=== PATIENT | female | born 1970 | race Caucasian/White ===

== ENCOUNTER 2024-12-01 14:20 | Outpatient (AMB) | payer OTHER, SELFPAY ==
--- NOTE | 2024-12-01 14:24 | ORTHONT_ITS ---
Vital signs 12/01/24 14:32 Height 1.65 m Height Method Stated Weight 95.85 kg Weight Measurement Method Standing Scale BMI 35.2 BP 135/79 H Blood Pressure Source Automatic Cuff Blood Pressure Location Left Upper Arm Position Sitting Respiration 18 Pulse 71 Pulse Source Monitor Temp 97.8 F Temp Source Temporal Artery Scan Pulse Oximetry (%) 95 Oxygen Delivery Method Room Air Med/Allergies Allergies & Medications Allergies No Known Allergies Allergy (Verified 12/01/24 14:33) Medication Reconciliation amlodipine 10 mg tablet 10 mg PO QDAY 12/01/24 [History Confirmed 12/01/24] celecoxib 100 mg capsule 100 mg PO BID 12/01/24 [History Confirmed 12/01/24] gabapentin 100 mg capsule 100 mg PO QDAY 12/01/24 [History Confirmed 12/01/24] glipizide 10 mg tablet 10 mg PO QDAY 12/01/24 [History Confirmed 12/01/24] isoniazid 300 mg tablet 300 mg PO QDAY 12/01/24 [History Confirmed 12/01/24] levothyroxine 200 mcg capsule 200 mcg PO QDAY 12/01/24 [History Confirmed 12/01/24] loratadine 10 mg capsule (Allergy Relief (loratadine)) 10 mg PO QDAY 12/01/24 [History Confirmed 12/01/24] meloxicam 15 mg tablet 15 mg PO QDAY 12/01/24 [History Confirmed 12/01/24] montelukast 10 mg tablet 10 mg PO QDAY 12/01/24 [History Confirmed 12/01/24] nitrofurantoin 25 mg/5 mL oral suspension 50 mg PO QHS 12/01/24 [History Confirmed 12/01/24] repaglinide 2 mg tablet 2 mg PO TID 12/01/24 [History Confirmed 12/01/24] semaglutide 3 mg tablet (Rybelsus) 3 mg PO QDAY 12/01/24 [History Confirmed 12/01/24] Exam Exam Patient is in no acute distress and is cooperative with the examination today. Breathing is nonlabored. In no respiratory distress. Bilateral extremities were evaluated and demonstrates sensation intact to light touch. Palpable pedal pulses are present. No significant edema is present. Bilateral hips were examined. The patient has no pain with log roll of the hips. Internal rotation to 30 degrees and external rotation to 30 degrees is painless. Negative FADIR. The left knee was examined. The left knee is in varus alignment. Range of motion from 0-115 degrees. Knee is stable to varus and valgus as well as AP translation with <5mm. Patient has a negative McMurrays. There is no pain with patellofemoral compression and no crepitus noted. The knee is tender to palpation medially. The right knee was also examined. The right knee is in varus alignment. Range of motion from 0-120 degrees. Knee is stable to varus and valgus as well as AP translation with <5mm. Patient has a negative McMurrays. There is no pain with patellofemoral compression and no crepitus noted. The knee is tender to palpation medially. Assessment and Plan Problem List (1) Bilateral knee pain: Status: Acute Plan: Patient is a pleasant 53-year-old female with bilateral knee pain and bilateral knee arthritis. We discussed different treatment options. We recommend injections or anti-inflammatories. We will see her weightbearing x-rays and see her back after it is done. She had a prior arthroscopic meniscectomy and has persistent pain. 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 ([id number]) MA Intake Visit Data Collection New Patient or Established: New Patient (never been to [facility]) Reason for Visit:: LEFT KNEE PAIN Seen by Clinical Staff ONLY (RN/MA): No PCP or OBGYN visit in last 3 months: Yes Hx Now: No Do You Feel Safe at Home: Yes Authorities Contacted: N/A Questionairres Past Medical History Past Medical History Have you ever been diagnosed with any of the following: Cardiology Problems Hypercholesterolemia: Yes Hypertension: Yes Endocrine Problems Diabetes Mellitus Type 1: Yes Hyperthyroidism: Yes Subjective Visit Visit for: new patient and knee Immunization / Flu Flu Vaccine in the Last 12 Months: No Flu Vaccine Exclusion Criteria: Refused by Patient History of Present Illness Chief complaint: Bilateral knee pain Shavonne is a 73-year-old female chronic knee pain left greater than right. This has been ongoing for several years. She has not had any injections in her knees. She has been seen by a private equity associate. She reports the pain is affecting her quality life and happiness Pain Pain level (0-10): 6 Pain duration: ALL DAY Pain location: inside (medial), outside (lateral) and anterior Pain quality: sharp, dull and aching Pain timing: increases with activity and stairs Associated signs & symptoms: weakness Ambulatory data Ambulatory device: cane Treatments Number of previous injections: 0 Improvement with previous injections: No Number of Physical Therapy sessions: 0 Improvement with PT: No Improvement with NSAIDS: no Review of Systems Review of Systems: All systems negative unless otherwise noted in HPI.
[2024-12-01 14:32] VITALS: BP 135/79; PULSE 71; RESP 18; TEMP 36.6; O2SAT 95; BMI 35.2
--- NOTE | 2024-12-01 14:35 | XR_ITS ---
Examination: Bilateral knees 2 views Right lateral knee left lateral knee 2 views Bilateral axial knees single view TECHNIQUE: Bilateral AP knees standing single view Bilateral PA knees standing single view flexion Standing right lateral knee left lateral knee 2 views Bilateral axial knees single view total 5 views Date and time: December 01, 2024 1451 hours INDICATIONS: Bilateral knee pain beginning several years ago FINDINGS: Moderate osteopenia Moderate narrowing medial joint space right knee Advanced medial joint space left knee No fractures IMPRESSION: Advanced narrowing medial joint space left knee
== END 2024-12-01 14:38 | disposition home or self-care (01) ==
LOC: HODSRG 14:20
PROVIDERS: PCP Internal Medicine; Referring Provider Internal Medicine; Supervising Provider Orthopaedic Surgery Adult Reconstructive Orthopaedic Surgery; Visit Provider Orthopaedic Surgery Adult Reconstructive Orthopaedic Surgery
DX: M25.562 Pain in left knee (principal); M25.561 Pain in right knee; M17.0 Bilateral primary osteoarthritis of knee; I10 Essential (primary) hypertension; E78.00 Pure hypercholesterolemia, unspecified; E10.9 Type 1 diabetes mellitus without complications
CPT/HCPCS: 73564; 99204; G0463

== ENCOUNTER 2024-12-22 07:59 | Outpatient (AMB) | payer OTHER, SELFPAY ==
--- NOTE | 2024-12-22 08:08 | PD.ORTHCLVIS ---
Vital signs 12/22/24 08:09 Height 1.65 m Height Method Measured Weight 97.069 kg Weight Measurement Method Standing Scale BMI 35.6 BP 126/78 Blood Pressure Source Automatic Cuff Blood Pressure Location Right Upper Arm Position Sitting Respiration 18 Pulse 76 Pulse Source Monitor Temp 97.3 F Temp Source Temporal Artery Scan Pulse Oximetry (%) 98 Oxygen Delivery Method Room Air Med/Allergies Allergies & Medications Allergies No Known Allergies Allergy (Verified 12/22/24 08:09) Medication Reconciliation amlodipine 10 mg tablet 10 mg PO QDAY 12/01/24 [History Confirmed 12/22/24] celecoxib 100 mg capsule 100 mg PO BID 12/01/24 [History Confirmed 12/22/24] gabapentin 100 mg capsule 100 mg PO QDAY 12/01/24 [History Confirmed 12/22/24] glipizide 10 mg tablet 10 mg PO QDAY 12/01/24 [History Confirmed 12/22/24] isoniazid 300 mg tablet 300 mg PO QDAY 12/01/24 [History Confirmed 12/22/24] levothyroxine 200 mcg capsule 200 mcg PO QDAY 12/01/24 [History Confirmed 12/22/24] loratadine 10 mg capsule (Allergy Relief (loratadine)) 10 mg PO QDAY 12/01/24 [History Confirmed 12/22/24] meloxicam 15 mg tablet 15 mg PO QDAY 12/01/24 [History Confirmed 12/22/24] montelukast 10 mg tablet 10 mg PO QDAY 12/01/24 [History Confirmed 12/22/24] nitrofurantoin 25 mg/5 mL oral suspension 50 mg PO QHS 12/01/24 [History Confirmed 12/22/24] repaglinide 2 mg tablet 2 mg PO TID 12/01/24 [History Confirmed 12/22/24] semaglutide 3 mg tablet (Rybelsus) 3 mg PO QDAY 12/01/24 [History Confirmed 12/22/24] apixaban 5 mg tablet (Eliquis) 5 mg PO BID 12/22/24 [History Confirmed 12/22/24] Exam Exam Patient is in no acute distress and is cooperative with the examination today. Breathing is nonlabored. In no respiratory distress. Bilateral extremities were evaluated and demonstrates sensation intact to light touch. Palpable pedal pulses are present. No significant edema is present. Bilateral hips were examined. The patient has no pain with log roll of the hips. Internal rotation to 30 degrees and external rotation to 30 degrees is painless. Negative FADIR. The left knee was examined. The left knee is in varus alignment. Range of motion from 0-115 degrees. Knee is stable to varus and valgus as well as AP translation with <5mm. Patient has a negative McMurrays. There is no pain with patellofemoral compression and no crepitus noted. The knee is tender to palpation medially. The right knee was also examined. The right knee is in varus alignment. Range of motion from 0-120 degrees. Knee is stable to varus and valgus as well as AP translation with <5mm. Patient has a negative McMurrays. There is no pain with patellofemoral compression and no crepitus noted. The knee is tender to palpation medially. Bilateral knee xrays demonstrate significant joint space narrowing medially worse on the left Assessment and Plan Problem List (1) Bilateral knee pain: Status: Acute Plan: Patient is a pleasant 54-year-old female with severe left knee arthritis. We discussed nonoperative and operative options. She was recently diagnosed with a blood clot and can likely not get surgery for a while. We told her to ask her primary care provider when she can get surgery as she was only recently diagnosed with a blood clot a couple weeks ago. She does not want any injections today as the last 1 did not work Office Procedures GNS Level of Care Nursing/Assessment Patient Status: Established Patient Nursing Assessment/Reassesment: Medication Reconciliation, Update PMH in EMR and Vital Signs Coordination of Care: Complex Care and Chronic Disease 1-5, Education Complex Pt/Fam, Consent,records obtained, informed consent, Results/Orders obtained and Staff clarify orders Special Needs: Language special needs Established Patient Charge Established Patient Point Assignment: 95 Established Patient Point Charge: EP Level 3 (80-115) MA Intake Visit Data Collection New Patient or Established: Established Patient (seen at [facility] within 3 years) Reason for Visit:: LEFT KNEE PAIN/XRAY RESULTS Seen by Clinical Staff ONLY (RN/MA): No Farmworker Machine Required: No PCP or OBGYN visit in last 3 months: Yes Hx Now: No Do You Feel Safe at Home: Yes Authorities Contacted: N/A Questionairres Past Medical History Past Medical History Have you ever been diagnosed with any of the following: Neurological Problems Cerebrovascular Accident (CVA): No Transient Ischemic Attacks (TIA): No Dementia: No Alzheimer's Disease: No Parkinson's Disease: No Brain Tumor: No Meningitis: No Seizures: No Epilepsy: No Multiple Sclerosis: No Cerebral Palsy: No Amyotrophic Lateral Sclerosis (ALS/Bijal Gehrig's): No Guillain-Mobile Syndrome: No Spina Bifida: No Paralysis: No Peripheral Neuropathy: No Torres's Palsy: No Subdural Hematoma: No Migraine: No Head Trauma: No Spinal Cord Injury: No Traumatic Brain Injury: No Cardiology Problems Myocardial Infarction: No Cardiac Arrhythmia: No Atrial Fibrillation: No Angina: No Heart Murmur: No Coronary Artery Disease: No Atherosclerotic Heart Disease: No Peripheral Vascular Disease: No Hypercholesterolemia: Yes Aneurysm: No Congestive Heart Failure: No Congenital Heart Disease: No Valvular Heart Disease: No Rheumatic Fever: No Cardiomyopathy: No Edema: No Pericarditis: No Cellulitis: No Deep Vein Thrombosis: No Hypertension: Yes Hypotension: No Varicose Veins: No Respiratory Problems Chronic Obstructive Pulmonary Disease (COPD): No Asthma: No Bronchitis: No Emphysema: No Pneumonia: No Pulmonary Fibrosis: No Tuberculosis: No Pulmonary Embolism: No Pulmonary Edema: No Sleep Apnea: No CPAP Dependent: No Respiratory Aspiration: No Dyspnea: No Orthopnea: No Hx Cough: No Cough: No Wheezing: No Chest Deformities: No Smoking: No Smoking Cessation Counseling: No Smoking Exposure: No Tobacco Use: No Clubbing: No Exposure to Respiratory Irritants: No Intubation: No Stomache/Intestinal Problems Liver Cancer: No Hepatitis: No Cirrhosis: No Pancreatic Cancer: No Pancreatitis: No Celiac Disease: No Gall Bladder Disease: No Gastrointestinal Bleed: No Esophageal Varices: No Singleton's Esophagus: No Colitis: No Ulcerative Colitis: No Diverticulitis: No Diverticulosis: No Ulcer: No Colorectal Cancer: No Irritable Bowel: No Crohn's Disease: No Obstructive Bowel: No Hiatal Hernia: No Hemorrhoids: No Gastroesophageal Reflux Disease: No Polyps: No Obesity: No Genital/Urinary Problems Chronic Kidney Disease: No Renal Disease: No Kidney Stones: No Polycystic Kidney Disease: No Neurogenic Bladder: No Inguinal Hernia: No Dialysis: No Reproductive Problems Breast Cancer: No Endometriosis: No Fibroids: No Genital Herpes: No Gonorrhea: No Pelvic Inflammatory Disease: No Polycystic Ovarian Syndrome: No Previous Pregnancies: No Syphilis: No Uterine Prolapse: No Musculoskeletal Problems Muscular Dystrophy: No Myasthenia Gravis: No Marfan's Syndrome: No Bone Cancer: No Arthritis: No Rheumatoid Arthritis: No Osteoporosis: No Degenerative Disk Disease: No Gout: No Scoliosis: No Carpal Tunnel Syndrome: No Fibromyalgia: No Fractures: No Degenerative Joint Disease: No Osteomyelitis: No Poliovirus: No Head,Eye,Nose,Throat Problems Cataracts: No Glaucoma: No Blind: No Retinal Detachment: No Macular Degeneration: No Chronic Ear Infections: No Deafness: No Eye Prosthesis: No Endocrine Problems Diabetes Mellitus Type 1: Yes Diabetes Mellitus Type 2: No Hypoglycemia: No Lamin's Syndrome: No Josue's Disease: No Hyperthyroidism: Yes Hypothyroidism: No Thyroid Cancer: No Parathyroid Disease: No Pituitary Disease: No Systemic Lupus Erythematosus: No Syndrome of Inappropriate Antidiuretic Hormone: No Adrenal Disease: No Graves' Disease: No Blood Problems Anemia: No Leukemia: No Hemophilia: No Thalassemia: No Sickle Cell Disease: No Clotting Problems: No Psychologic Problems Schizophrenia: No Recreational Drug Use: No Bipolar Disorder: No Depression: No Anxiety: No Behavior Problems: No Self-Mutilation: No Attention Deficit Disorder: No Attention Deficit Hyperactivity Disorder: No Depression: No Post Traumatic Stress Disorder: No Eating Disorder: No Other Problems Hospitalization: No Autoimmune Disease: No Down Syndrome: No Autism: No Developmental Delay: No Cosmetic Surgery: No Shingles: No Falls: No Blood Transfusions: No Blood Transfusion Reaction: No Anesthesia Reactions: No Organ Transplant: No Chemotherapy: No Radiation Therapy: No Hyperbaric Therapy: No MRSA: No VRSA: No Vancomycin-Resistant Enterococci: No Human Immunodeficiency Virus (HIV): No Chicken Pox: No Measles: No Mumps: No Rubella (Bhutanese Measles): No Pertussis: No Klebsiella Pneumoniae Carbapenemase Producing Bacteria: No Clostridium Difficile: No Hepatitis A: No Hepatitis B: No Hepatitis C: No Communicable Disease: No Cancer: No Cervical Cancer: No Lung Cancer: No Ovarian Cancer: No Surgical History Angioplasty: No Appendectomy: No Bariatric Surgery: No Breast Surgery: No Cancer Surgery: No Carotid Endarterectomy: No Cholecystectomy: No Colectomy: No Colostomy: No Coronary Artery Bypass Graft: No Valve Replacement: No Herniorrhaphy: No Total Hip Replacement: No Total Knee Replacement: No Hysterectomy: No Pacemaker: No Sinus Surgery: No Splenectomy: No TAHBSO-Total Abdominal Hysterectomy: No Thyroidectomy: No Ureter Stent: No Subjective Visit Visit for: follow up visit and knee Immunization / Flu Flu Vaccine in the Last 12 Months: No Flu Vaccine Exclusion Criteria: Refused by Patient History of Present Illness Chief complaint: XRAY RESULTS/LEFT KNEE PAIN Shavonne is a 73-year-old female chronic knee pain left greater than right. This has been ongoing for several years. She has not had any injections in her knees. She has been seen by a parts counter salesperson. She reports the pain is affecting her quality life and happiness She was recently diagnosed with a blood clot. The last knee injections only lasted less than a week Personal History Red flag PMH: none BMI Counceling provided: Yes Pain Pain level (0-10): 7 Pain duration: ALL DAY Pain location: inside (medial), outside (lateral), anterior and posterior Pain quality: sharp, dull and aching Pain timing: increases with activity and stairs Associated signs & symptoms: weakness Ambulatory data Ambulatory device: cane Treatments Number of previous injections: 0 Improvement with previous injections: No Number of Physical Therapy sessions: 0 Improvement with PT: No Improvement with NSAIDS: no Review of Systems Review of Systems: All systems negative unless otherwise noted in HPI.
[2024-12-22 08:09] VITALS: BP 126/78; PULSE 76; RESP 18; TEMP 36.3; O2SAT 98; BMI 35.6
== END 2024-12-22 08:20 | disposition home or self-care (01) ==
LOC: HODSRG 07:59
PROVIDERS: PCP Internal Medicine; Referring Provider Internal Medicine; Supervising Provider Orthopaedic Surgery Adult Reconstructive Orthopaedic Surgery; Visit Provider Orthopaedic Surgery Adult Reconstructive Orthopaedic Surgery
DX: M17.12 Unilateral primary osteoarthritis, left knee (principal); M25.562 Pain in left knee; M25.561 Pain in right knee; I74.9 Embolism and thrombosis of unspecified artery; I10 Essential (primary) hypertension; E78.00 Pure hypercholesterolemia, unspecified; E10.9 Type 1 diabetes mellitus without complications
CPT/HCPCS: 99213; G0463